=== PATIENT | female | born 1955 | race Caucasian/White ===

== ENCOUNTER 2017-05-18 16:10 | Emergency (ER) | payer BC ==
[2017-05-18 16:17] VITALS: BP 129/74
[2017-05-18] MEDS ORDERED: KETOROLAC 60 MG/2 ML VIAL IVP STA (16:47)
[2017-05-18] MEDS ORDERED: SODIUM CHLORIDE 0.9% 1,000 ML IV ONE (16:47)
[2017-05-18] MEDS ORDERED: ONDANSETRON 4 MG/2 ML VIAL IVP STA (16:47)
[2017-05-18] MEDS ORDERED: HYDROmorphone 1 MG/ML SYRINGE IVP STA (16:47)
[2017-05-18 17:09] LABS: BASOPHILS % (AUTO) 0.7 %; EOSINOPHILS % (AUTO) 0.1 %; HCT - HEMATOCRIT 46.5 % (37.0-47.0); HGB - HEMOGLOBIN 15.8 g/dL (12.0-16.0); LYMPHOCYTES # (AUTO) 0.6 10^3/uL (1.5-3.5); LYMPHOCYTES % (AUTO) 8.8 %; MEAN CORPUSCULAR HEMOGLOBIN 29.4 pg (27.0-31.0); MEAN CORPUSCULAR HGB CONC 33.9 g/dL (32.0-36.0); MEAN CORPUSCULAR VOLUME 86.7 fL (81.0-99.0); MEAN PLATELET VOLUME 7.5 fL (7.9-10.8); MONOCYTES # (AUTO) 0.5 10^3/uL (0.0-1.0); MONOCYTES % (AUTO) 6.9 %; NEUTROPHILS # (AUTO) 5.6 10^3/uL (1.5-6.6); NEUTROPHILS % (AUTO) 83.5 %; RED BLOOD COUNT 5.36 10^6/uL (4.20-5.40); RED CELL DISTRIBUTION WIDTH 14.1 % (12.0-15.0); UNCORRECTED WHITE BLOOD COUNT 6.7 x10^3/uL; WHITE BLOOD COUNT 6.7 x10^3/uL (4.8-10.8)
[2017-05-18] MEDS ORDERED: SODIUM CHLORIDE FLUSH 0.9% 10 ML SYRINGE IVP ONE (17:31)
[2017-05-18 17:33] LABS: ALBUMIN/GLOBULIN RATIO 1.2 (1.0-2.2); BILIRUBIN,TOTAL 0.7 mg/dL (0.2-1.0); CALCIUM 8.9 mg/dL (8.5-10.3); CREATININE 0.7 mg/dL (0.4-1.0); POTASSIUM 3.7 mmol/L (3.5-5.0); TOTAL PROTEIN 7.6 g/dL (6.7-8.2); URIC ACID 4.2 mg/dL (2.6-7.2)
[2017-05-18 17:33] LABS: BILIRUBIN,URINE NEGATIVE (NEGATIVE)
[2017-05-18] MEDS ORDERED: HYDROmorphone 1 MG/ML SYRINGE ONE (17:42)
[2017-05-18] MEDS ORDERED: KETOROLAC 30 MG/ML VIAL ONE (17:44)
[2017-05-18] MEDS ORDERED: ONDANSETRON 4 MG/2 ML VIAL ONE (17:44)
[2017-05-18 17:45] LABS: UA w/ MICROSCOPIC CHARGE YES
[2017-05-18 17:47] LABS: UR CULTURE IF IND NOT INDICATED; WBC,URINE 0-3 /HPF (0-5)
[2017-05-18] MEDS ORDERED: predniSONE 20 MG TABLET PO STA (18:37)
--- NOTE | 2017-05-18 18:40 | XRAY Preliminary Report ---
Exam: XR Foot 3 View LT IMPRESSION: 1. Moderately advanced spurring and hypertrophy of the first metatarsophalangeal joint. No acute frac ture. [facility] SITE ID: [id number]
--- NOTE | 2017-05-18 18:42 | XRAY Report ---
EXAM: LEFT FOOT RADIOGRAPHY EXAM DATE: 05/18/2017 06:22 PM. CLINICAL HISTORY: Left midfoot pain no injury. COMPARISON: None. TECHNIQUE: 3 views. FINDINGS: Bones: There is moderate hypertrophy of the distal first metatarsal. Negative for an acute fracture. No lytic or destructive bone lesion. Joints: There is joint space narrowing of the first metatarsal-phalangeal joint. No dislocation. Soft Tissues: There is a spur on the calcaneus at Achilles insertion. IMPRESSION: 1. Moderately advanced spurring and hypertrophy of the first metatarsophalangeal joint. No acute frac ture. [facility] Referring Provider Line: [phone] SITE ID: [id number]
[2017-05-18] MEDS ORDERED: predniSONE 20 MG TABLET ONE (18:45)
--- NOTE | 2017-05-18 18:52 | ED Physician Documentation ---
History of Present Illness - Stated complaint Stated Complaint: BODY ACHES - Chief complaint Chief Complaint: General - Additonal information Additional information: Patient is a pleasant healthy 62-year-old female who presents with a complaint of generalized body aches and myalgias since . The pain started in her left foot and progressed and now involves her entire body. She feels achy and occasionally mildly feverish with chills. She does not have any ear nose and throat symptoms. There is no chest pain or cough. There is no abdominal pain nausea, vomiting, constipation or diarrhea. She has never had this type of thing happen before. She denies any injury to her foot either. There is no history of gout. Review of systems: For pertinent positive and negatives in the review of systems please see the history of present illness, otherwise all other systems have been reviewed and are negative. Dragon disclaimer: Parts of this medical record were created using voice recognition technology. Because of the inherent limitations of this system, occasional same sounding word substitutions do occur and persist despite proofreading. Please read the document for context. Review of Systems Constitutional: reports: Chills, Myalgias, Fatigue Eyes: denies: Loss of vision Ears: denies: Loss of hearing Nose: denies: Rhinorrhea / runny nose, Foreign Body Throat: denies: Sore throat PD PAST MEDICAL HISTORY - Past Medical History Past Medical History: No - Past Surgical History Past Surgical History: Yes General: Cholecystectomy - Present Medications Home Medications: Ambulatory Orders Medication Instructions Recorded Confirmed Naproxen Sodium [Aleve] 1 tab PO DAILY 05/18/17 05/18/17 Prednisone 40 mg PO DAILY #8 tablet 05/18/17 Tramadol HCl 50 mg PO Q8HR PRN #14 tablet 05/18/17 - Allergies Allergies/Adverse Reactions: Allergies Allergy/AdvReac Type Severity Reaction Status Date / Time No Known Drug Allergies Allergy Verified 05/15/14 11:43 - Social History Does the pt smoke?: Yes Smoking Status: Current some day smoker Does the pt drink ETOH?: No Does the pt have substance abuse?: No PD ED PE NORMAL - Vitals Vital signs reviewed: Yes - General General: Alert and oriented X 3, No acute distress - HEENT HEENT: Atraumatic, EOMI, Ears normal, Pharynx benign, Dentition benign - Neck Neck: Supple, no meningeal sign - Cardiac Cardiac: RRR, No murmur, No gallop - Respiratory Respiratory: No respiratory distress, Clear bilaterally - Abdomen Abdomen: Normal bowel sounds, Non tender - Female Female : Deferred - Derm Derm: Normal color, Warm and dry - Extremities Extremities: No deformity, No tenderness to palpate - Neuro Neuro: Alert and oriented X 3, trapper bird 2-12 intact, No motor deficit, No sensory deficit Results - Vitals Vitals: Vital Signs - 24 hr 05/18/17 16:14 Temperature 37.5 C Heart Rate 96 Respiratory 22 Rate Blood Pressure 129/74 O2 Saturation 94 Oxygen O2 Source Room air - Labs Labs: Laboratory Tests 05/18/17 05/18/17 05/18/17 17:04 17:04 17:04 WBC 6.7 RBC 5.36 Hgb 15.8 Hct 46.5 MCV 86.7 MCH 29.4 MCHC 33.9 RDW 14.1 Plt Count 194 MPV 7.5 L Neut # 5.6 Lymph # 0.6 L [place] # 0.5 Eos # 0.0 Baso # 0.0 Absolute Nucleated RBC 0.00 Nucleated RBCs 0.0 ESR 3 Sodium 134 L Potassium 3.7 Chloride 98 L Carbon Dioxide 27 Anion Gap 9.0 BUN 12 Creatinine 0.7 Estimated GFR (MDRD) 85 L Glucose 115 H Uric Acid 4.2 Calcium 8.9 Total Bilirubin 0.7 AST 39 ALT 43 Alkaline Phosphatase 98 C-Reactive Protein 8.8 H Total Protein 7.6 Albumin 4.1 Globulin 3.5 Albumin/Globulin Ratio 1.2 Lipase 18 L Urine Color Urine Clarity Urine pH Ur Specific [place] Urine Protein Urine Glucose (UA) Urine Ketones Urine Occult Blood Urine Nitrite Urine Bilirubin Urine Urobilinogen Ur Leukocyte Esterase Urine RBC Urine WBC Ur Squamous Epith Cells Urine Bacteria Ur Microscopic Review Urine Culture Comments 05/18/17 17:27 WBC RBC Hgb Hct MCV MCH MCHC RDW Plt Count MPV Neut # Lymph # [place] # Eos # Baso # Absolute Nucleated RBC Nucleated RBCs ESR Sodium Potassium Chloride Carbon Dioxide Anion Gap BUN Creatinine Estimated GFR (MDRD) Glucose Uric Acid Calcium Total Bilirubin AST ALT Alkaline Phosphatase C-Reactive Protein Total Protein Albumin Globulin Albumin/Globulin Ratio Lipase Urine Color YELLOW Urine Clarity CLEAR Urine pH 6.0 Ur Specific [place] <=1.005 Urine Protein NEGATIVE Urine Glucose (UA) NEGATIVE Urine Ketones NEGATIVE Urine Occult Blood MODERATE H Urine Nitrite NEGATIVE Urine Bilirubin NEGATIVE Urine Urobilinogen 0.2 (NORMAL) Ur Leukocyte Esterase NEGATIVE Urine RBC 0-5 Urine WBC 0-3 Ur Squamous Epith Cells FEW Squamous Urine Bacteria Rare Ur Microscopic Review INDICATED Urine Culture Comments NOT INDICATED PD MEDICAL DECISION MAKING - ED course Complexity details: reviewed old records, reviewed results, re-evaluated patient , d/w patient, d/w family ED course: Pleasant 62-year-old woman with myalgias for 3 days without any signs or symptoms of infection. The pain started in the left foot which clinically looks normal. Radiographs and uric acid were obtained and are normal. I do not think this represents gout. She felt warm to touch and looks a little flushed. We did an infectious disease workup including chest x-ray labs and urinalysis. All these tests are normal. She has no other ear nose and throat symptoms that would make me more concerned for influenza or RSV. Given her myalgias and body aches without identifiable cause him a little concerned about possibility of polymyalgia rheumatica. This was discussed with the patient is a possible etiology. Her CRP is elevated however the ESR is normal. The treatment at this point is mainly supportive I have written for small amount of tramadol for muscle aches and will place her on a short course of oral prednisone. If she gets significant rapid benefit with prednisone and this could be additional data suggesting a inflammatory condition such as PMR. Although more likely than not this is probably just a nontypeable virus. Disposition: To home Clinical impression: 1. Generalized myalgias 2. Possible polymyalgia rheumatica first flare Departure - Departure Disposition: 01 Home, Self Care Clinical Impression: Generalized muscle ache Condition: Good Instructions: ED Muscle Aching Follow-Up: Flavio Babin MD [Provider Admit Priv/Credential] - Prescriptions: Tramadol HCl 50 mg PO Q8HR PRN #14 tablet PRN Reason: Pain Prednisone 40 mg PO DAILY #8 tablet Comments: All of your tests and x-rays are normal here today. Your CRP is mildly elevated however your ESR is normal. More likely than not to have a virus however you could have a more rare rheumatologic condition called polymyalgia rheumatica. Try a short course of oral prednisone to see if this helps you. If the prednisone gives him a lot of benefit very quickly he could be additional information suggesting you have this disorder. I suggest you seek follow-up with her local physician to go over your test results. Please return if worse in any way
--- NOTE | 2017-05-18 19:12 | XRAY Preliminary Report ---
Exam: XR Chest 2 View PA/LAT IMPRESSION: No acute pulmonary consolidation. [facility] SITE ID: [id number]
--- NOTE | 2017-05-18 19:15 | XRAY Report ---
EXAM: CHEST RADIOGRAPHY EXAM DATE: 05/18/2017 06:38 PM. CLINICAL HISTORY: Fever, no source. COMPARISON: None. TECHNIQUE: 2 views. FINDINGS: Lungs/Pleura: No focal opacities evident. No pleural effusion. No pneumothorax. Normal volumes. Mediastinum: Normal heart size. Atherosclerosis. Other: Status post left breast surgery. IMPRESSION: No acute pulmonary consolidation. [facility] Referring Provider Line: [phone] SITE ID: [id number]
== END 2017-05-18 19:03 | disposition home or self-care (01) ==
LOC: ED 16:10
DX: M79.1 Myalgia (principal); F17.200 Nicotine dependence, unspecified, uncomplicated
CPT/HCPCS: 36415; 71020; 73630; 80053; 81001; 83690; 84550; 85025; 85651; 86140; 96374; 96375; 99283; 99284; J1170; J7512; 81003; 87086

== ENCOUNTER 2017-05-21 09:10 | Outpatient (CLI) | payer BC | END 2017-05-21 09:11 | disposition critical access hospital (66) | LOC: EMS 09:10 | PROVIDERS: ATTEND Surgery | DX: M54.9 Dorsalgia, unspecified (principal) | CPT/HCPCS: A0425; A0427 ==

== ENCOUNTER 2017-05-21 09:30 | Inpatient (IN) | payer BC ==
--- NOTE | 2017-05-21 09:46 | ED Physician Documentation ---
PD HPI BACK PAIN - Stated complaint Stated Complaint: BACK PX - Chief complaint Chief Complaint: Back Pain - History obtained from History obtained from: Patient, EMS - History of Present Illness Timing - onset: Today Timing - duration: Hours (several) Location: Mid, Lower (thoracolumbar area midline and to both sides muscles. No rash nor sores.) Associated symptoms: Other (general malaise and muscle aches for 2 days). No: Fever, Weakness, Numbness, Incontinent of urine Worsened by: Movement, Twisting. No: Palpation Contributing factors: No: Lifting, Twisting, Trauma Similar symptoms before: Has not had sx before Recently seen: Emergency Dept (2 days ago for general malaise and arthralgias. Had CXR, foot xray and labs without specific diagnosis. Did not have back pain at the time. Onset thoracolumbar pain today, worse with movement and feeling of muscle spasms.) Review of Systems Constitutional: reports: Myalgias, Fatigue. denies: Fever, Chills Nose: denies: Rhinorrhea / runny nose, Congestion Throat: denies: Sore throat Cardiac: denies: Chest pain / pressure, Palpitations Respiratory: denies: Cough GI: denies: Abdominal Pain, Abdominal Swelling, Nausea, Vomiting, Diarrhea : denies: Dysuria, Hematuria Skin: denies: Rash, Lesions Neurologic: reports: Generalized weakness. denies: Focal weakness, Numbness, Near syncope, Headache PD PAST MEDICAL HISTORY - Past Medical History Cardiovascular: None Respiratory: None Neuro: None Endocrine/Autoimmune: None - Past Surgical History Past Surgical History: Yes General: Cholecystectomy - Present Medications Home Medications: Ambulatory Orders Medication Instructions Recorded Confirmed Naproxen Sodium [Aleve] 220 mg PO DAILY PRN 05/18/17 05/21/17 Prednisone 40 mg PO DAILY #8 tablet 05/18/17 05/21/17 Tramadol HCl 50 mg PO Q8HR PRN #14 tablet 05/18/17 05/21/17 Baclofen 10 mg PO TID PRN #20 tablet 05/23/17 HYDROcod/ACETAM 5/325 [[place] 5/325] 1 each PO Q4H PRN #25 tablet 05/23/17 - Allergies Allergies/Adverse Reactions: Allergies Allergy/AdvReac Type Severity Reaction Status Date / Time No Known Drug Allergies Allergy Verified 05/15/14 11:43 - Social History Does the pt smoke?: Yes Smoking Status: Current some day smoker Does the pt drink ETOH?: No Does the pt have substance abuse?: No - Family History Family history: denies: Aortic aneursym, Aortic dissection PD ED PE NORMAL - Vitals Vital signs reviewed: Yes - General General: Alert and oriented X 3, Well developed/nourished, Other (appears in pain with slight movement of lower back. ) - HEENT HEENT: Pharynx benign - Neck Neck: Supple, no meningeal sign, No adenopathy - Cardiac Cardiac: RRR, No murmur - Respiratory Respiratory: Clear bilaterally - Abdomen Abdomen: Normal bowel sounds, Soft, Non tender, Non distended, No organomegaly - Female Female : Deferred - Rectal Rectal: Deferred - Back Back: No CVA TTP, Other (tender in muscles at thoracolumbar area. No rash nor sores. No vertebral tenderness per se. ) - Derm Derm: Normal color, Warm and dry - Extremities Extremities: No deformity, No tenderness to palpate, No edema, No calf tenderness / cord - Neuro Neuro: No motor deficit, No sensory deficit, Other (2+DTRs at knees. ) Results - Vitals Vitals: Oxygen O2 Source Room air - Labs Labs: Laboratory Tests 05/21/17 05/21/17 05/21/17 09:58 09:58 09:58 WBC 10.4 RBC 5.08 Hgb 14.7 Hct 43.7 MCV 86.1 MCH 29.0 MCHC 33.7 RDW 14.3 Plt Count 156 MPV 8.6 Neut # 7.2 H Lymph # 1.8 [place] # 1.3 H Eos # 0.0 Baso # 0.1 Absolute Nucleated RBC 0.01 Nucleated RBCs 0.1 ESR 10 Sodium Potassium Chloride Carbon Dioxide Anion Gap BUN Creatinine Estimated GFR (MDRD) Glucose Glycated Hemoglobin Estim Average Glucose Calcium Magnesium Total Bilirubin AST ALT Alkaline Phosphatase Total Creatine Kinase C-Reactive Protein 17.0 H Total Protein Albumin Globulin Albumin/Globulin Ratio Urine Color Urine Clarity Urine pH Ur Specific [place] Urine Protein Urine Glucose (UA) Urine Ketones Urine Occult Blood Urine Nitrite Urine Bilirubin Urine Urobilinogen Ur Leukocyte Esterase Urine RBC Urine WBC Ur Squamous Epith Cells Urine Bacteria Urine Mucus Ur Microscopic Review Urine Culture Comments Influenza A (Rapid) Influenza B (Rapid) Influenza Types A,B Ag 05/21/17 05/21/17 05/22/17 11:10 17:52 05:37 WBC 15.3 H RBC 4.99 Hgb 14.5 Hct 43.4 MCV 87.0 MCH 29.1 MCHC 33.5 RDW 14.4 Plt Count 187 MPV 8.7 Neut # 13.4 H Lymph # 0.9 L [place] # 1.0 Eos # 0.0 Baso # 0.0 Absolute Nucleated RBC 0.00 Nucleated RBCs 0.0 ESR Sodium Potassium Chloride Carbon Dioxide Anion Gap BUN Creatinine Estimated GFR (MDRD) Glucose Glycated Hemoglobin Estim Average Glucose Calcium Magnesium Total Bilirubin AST ALT Alkaline Phosphatase Total Creatine Kinase C-Reactive Protein Total Protein Albumin Globulin Albumin/Globulin Ratio Urine Color YELLOW Urine Clarity CLEAR Urine pH 6.0 Ur Specific [place] 1.015 Urine Protein NEGATIVE Urine Glucose (UA) NEGATIVE Urine Ketones NEGATIVE Urine Occult Blood MODERATE H Urine Nitrite NEGATIVE Urine Bilirubin NEGATIVE Urine Urobilinogen 0.2 (NORMAL) Ur Leukocyte Esterase NEGATIVE Urine RBC 6-10 H Urine WBC 0-3 Ur Squamous Epith Cells RARE Squamous Urine Bacteria Rare Urine Mucus Few [place] Ur Microscopic Review INDICATED Urine Culture Comments NOT INDICATED Influenza A (Rapid) Negative Influenza B (Rapid) Negative Influenza Types A,B Ag - 05/22/17 05/22/17 05/22/17 05:37 05:37 09:59 WBC RBC Hgb Hct MCV MCH MCHC RDW Plt Count MPV Neut # Lymph # [place] # Eos # Baso # Absolute Nucleated RBC Nucleated RBCs ESR Sodium 138 Potassium 3.7 Chloride 102 Carbon Dioxide 25 Anion Gap 11.0 BUN 26 H Creatinine 0.7 Estimated GFR (MDRD) 85 L Glucose 118 H Glycated Hemoglobin 6.0 Estim Average Glucose 126 H Calcium 8.7 Magnesium 2.1 Total Bilirubin 0.6 AST 23 ALT 53 Alkaline Phosphatase 125 H Total Creatine Kinase 11 L C-Reactive Protein Total Protein 6.9 Albumin 3.3 Globulin 3.6 Albumin/Globulin Ratio 0.9 L Urine Color Urine Clarity Urine pH Ur Specific [place] Urine Protein Urine Glucose (UA) Urine Ketones Urine Occult Blood Urine Nitrite Urine Bilirubin Urine Urobilinogen Ur Leukocyte Esterase Urine RBC Urine WBC Ur Squamous Epith Cells Urine Bacteria Urine Mucus Ur Microscopic Review Urine Culture Comments Influenza A (Rapid) Influenza B (Rapid) Influenza Types A,B Ag - Rads (name of study) KUB CT Radiology: Prelim report reviewed, Final report received (some disc bulge L4-5; colon wall thickening at rectal area. No acute process per se. ) PD MEDICAL DECISION MAKING - ED course Complexity details: reviewed results, re-evaluated patient (still hurting with simple ROM, even getting out of bed to bathroom, unable to do so. Seems concerning and consider other cause not yet seen (consider MRI).), considered differential (Patient needs repeated, several doses of pain meds and other meds to get comfortable at rest. Still significant pain and spasms with movement. CT is okay. blood tests show only mild elevation CRP. No neurologic deficits in legs. I don't know cause of her pain except myofascial pain. No obvious stones, aneurysms, vascular; no markers to suggest discitis/abscess. However cannot control pain adequately. Talked with Hospitalist for continued treatment and consider other testing as they deem appropriate. ), d/w patient Departure - Departure Disposition: ED Place in Observation Clinical Impression: Thoracolumbar back pain, Intractable low back pain Condition: Stable Record reviewed to determine appropriate education?: Yes Discharge Date/Time: 05/21/17 17:44
[2017-05-21] MEDS ORDERED: diazePAM INJ 5 MG/ML SYRINGE IVP STA (09:48)
[2017-05-21] MEDS ORDERED: KETOROLAC 60 MG/2 ML VIAL IVP STA (09:48)
[2017-05-21] MEDS ORDERED: HYDROmorphone 1 MG/ML SYRINGE IVP STA ×4 (09:48→16:00)
[2017-05-21] MEDS ORDERED: HYDROmorphone 1 MG/ML SYRINGE ONE ×4 (10:02→16:28)
[2017-05-21] MEDS ORDERED: KETOROLAC 30 MG/ML VIAL ONE (10:03)
[2017-05-21] MEDS ORDERED: diazePAM INJ 5 MG/ML SYRINGE ONE (10:03)
[2017-05-21 10:07] LABS: BASOPHILS # (AUTO) 0.1 10^3/uL (0.0-0.1); BASOPHILS % (AUTO) 0.8 %; EOSINOPHILS % (AUTO) 0.4 %; HCT - HEMATOCRIT 43.7 % (37.0-47.0); HGB - HEMOGLOBIN 14.7 g/dL (12.0-16.0); LYMPHOCYTES # (AUTO) 1.8 10^3/uL (1.5-3.5); LYMPHOCYTES % (AUTO) 17.6 %; MEAN CORPUSCULAR HGB CONC 33.7 g/dL (32.0-36.0); MEAN CORPUSCULAR VOLUME 86.1 fL (81.0-99.0); MEAN PLATELET VOLUME 8.6 fL (7.9-10.8); MONOCYTES # (AUTO) 1.3 10^3/uL (0.0-1.0); MONOCYTES % (AUTO) 12.1 %; NEUTROPHILS # (AUTO) 7.2 10^3/uL (1.5-6.6); NEUTROPHILS % (AUTO) 69.1 %; NUCLEATED RED BLOOD CELLS AUTO 0.1 /100WBC; RED BLOOD COUNT 5.08 10^6/uL (4.20-5.40); RED CELL DISTRIBUTION WIDTH 14.3 % (12.0-15.0); UNCORRECTED WHITE BLOOD COUNT 10.4 x10^3/uL; WHITE BLOOD COUNT 10.4 x10^3/uL (4.8-10.8)
[2017-05-21 11:25] LABS: BILIRUBIN,URINE NEGATIVE (NEGATIVE)
[2017-05-21 11:31] LABS: UA w/ MICROSCOPIC CHARGE YES; UR CULTURE IF IND NOT INDICATED; WBC,URINE 0-3 /HPF (0-5)
[2017-05-21] MEDS ORDERED: DEXAMETHASONE 10 MG/ML VIAL IVP STA (11:47)
[2017-05-21] MEDS ORDERED: DEXAMETHASONE 10 MG/ML VIAL ONE (11:57)
[2017-05-21] MEDS ORDERED: SODIUM CHLORIDE FLUSH 0.9% 10 ML SYRINGE IVP ONE (11:58)
[2017-05-21] MEDS ORDERED: ACETAMINOPHEN 500 MG TABLET PO STA (12:21)
[2017-05-21] MEDS ORDERED: ACETAMINOPHEN 500 MG TABLET PO ONE (12:43)
--- NOTE | 2017-05-21 15:36 | CT Report ---
EXAM: CT ABDOMEN AND PELVIS EXAM DATE: 05/21/2017 03:16 PM. CLINICAL HISTORY: Back pain COMPARISONS: None. TECHNIQUE: Routine axial helical CT imaging was performed through the abdomen and pelvis without IV c ontrast. Reconstructions: Coronal and sagittal. In accordance with CT protocol optimization, one or more of the following dose reduction techniques w ere utilized for this exam: automated exposure control, adjustment of mA and/or KV based on patient s ize, or use of iterative reconstructive technique. FINDINGS: Lung Bases: Unremarkable. Abdominal Organs: The liver, spleen, pancreas, and adrenal glands demonstrate no significant abnormal ities. There is a 0.2 cm nonobstructing stone within the inferior right kidney. No evidence of distal obstructing stone or hydronephrosis. Left kidney demonstrates no stones or hydronephrosis. There is an exophytic cyst emanating from the inferior left kidney. Gallbladder/bile ducts: The gallbladder is not seen. No significant bile duct dilatation. Peritoneal Cavity: Questionable wall thickening versus dense stool within the left rectum (image 84 s eries 3). There is distal colon diverticulosis without evidence of diverticulitis. There is colonic d iverticulosis without evidence of diverticulitis. Pelvic Organs: No bladder stones or wall thickening. Noncontrast images of the visualized pelvic orga ns are unremarkable. Vasculature: Unremarkable. Other: No acute bony abnormalities are seen. There is mild to moderate spinal stenosis and neural for amen narrowing secondary to disk bulge and ligamentum flavum hypertrophy at the L4-L5 level. IMPRESSION: 1. Small nonobstructing stone within the inferior right kidney. No evidence of distal obstructing sto ne or hydronephrosis. 2. There is distal colon diverticulosis without evidence of diverticulitis. 3. Questionable wall thickening versus dense stool within the left aspect of the rectum (image 84 ser ies 3). Correlation with examination recommended as indicated. 4. There is mild to moderate spinal stenosis and neural foraminal narrowing secondary to disk bulge a nd ligamentum flavum hypertrophy at the L4-L5 level. No acute bony abnormalities are seen. Referring Provider Line: [phone] SITE ID: [id number]
[2017-05-21] MEDS ORDERED: PROMETHAZINE 25 MG/1 ML VIAL IM PRN (16:52)
[2017-05-21] MEDS ORDERED: ZOLPIDEM 5 MG TABLET PO PRN (16:52)
--- NOTE | 2017-05-21 17:11 | HISTORY & PHYSICAL EXAMINATION ---
Chief Complaint - Chief Complaint Chief Complaint: thoracolumbar back pain History of Present Illness - Admitted From Admitted From:: emergence department - History Obtained From History obtained from: patient and her - History of Present Illness HPI Comment/Other: This is a 62-year-old Cauc[place] female without significant medical history, who present emergence department for evaluation of thoracolumbar pain. Patient report she has been on this emergence department for general malaise and arthralgias 2 days ago. Her CXR, foot Xray and lab test was without specific diagnosis. She was prescribed Prednisone, Tramadol, and Naproxen 2 days ago. She report she compliant these medications. She report she still had arthralgias , generalized malaise, weakness, and arthralgias. She also report she developed throracolumbar back pain, and pain worsen with the movement. She report she feels her muscle spasms as well. Patient report in last Friday she had nausea and vomiting once but no diarrhea. Patient denies bladder control and bowel movement problem. Patient report she has normal sensation and movement in four extremities. There is no focal neurological deficits. Patient denies chest pain , shortness of breathing, headache, dysuria or vision issue. CXR and Xray of foot done two days were unremarkable. CT of abdomen reveals some significant findings including at L4-L5 level, mild to moderate spinal stenosis and neural foraminal narrowing secondary to disk bulge and ligamentum flavum hypertrophy, no acute bony abnormalities. Lab test reveals significantly moderate blood at UA, high CRP 17, normal ESR, negative for Influanza A/B. Vital are unremarkable. Review of Systems - Constitutional Constitutional: reports: Fatigue, Malaise, Weakness. denies: Fever, Chills, Poor appetite, Diaphoresis, Night sweats, Weight gain, Weight loss - Eyes Eyes: denies: Pain, Irritation, Amaurosis, Blurred vision, Spots in vision, Field loss, Vision loss - Ears, Nose & Throat Ears, Nose & Throat: denies: Ear pain, Hearing loss, Hearing aids, Tinnitus, Vertigo, Nasal discharge, Nosebleeds, Postnasal drainage, Sore throat, Mouth lesions, Bleeding gums - Cardiovascular Cariovascular: denies: Irregular heart rate, Palpitations, Chest pain, Edema, Lightheadedness, Syncope, Exertional dyspnea, Decr. exercise tolerance - Respiratory Respiratory: denies: Cough, Sputum production, Wheezing, Snoring, Orthopnea, SOB at rest, SOB with exertion - Gastrointestinal Gastrointestinal: reports: Abdominal pain, Nausea, Vomiting. denies: Abdominal distention, Constipation, Diarrhea, Change in bowel habits, Rectal bleeding, Black stools, Bloody stools, Jamie blood emesis, Coffee grounds emesis - Genitourinary Genitourinary: denies: Dysuria, Frequency, Urgency, Hematuria, Incontinence, Flank pain - Musculoskeletal Musculoskeletal: reports: Muscle pain, Back pain, Muscle aches, Joint pain. denies: Stiffness, Limited range of motion, Muscle weakness, Gout - Integumentary Integumentary: reports: Rash. denies: Pruritis, Lesions, Dryness, Lumps, Acne, Pigment changes, Nail changes - Neurological Neurological: denies: General weakness, Focal weakness, Headache, Dizziness, Numbness, Memory problems, Abnormal gait, Seizures, Incoordination, Slurred speech - Psychiatric Psychiatric: denies: Depression, Anxiety, Suicidal, Delusions, Hallucinations, Homicidal - Endocrine Endocrine: denies: Polyuria, Polydypsia, Polyphagia, Intolerance to cold - Hematologic/Lymphatic Hematologic/Lymphatic: denies: Anemia, Bruising, Petechiae, Blood clots, Lymphadenopathy, Bleeding tendencies, Recurrent infections History - Past Medical History Cardiovascular: reports: None Respiratory: reports: None Neuro: reports: None Endocrine/Autoimmune: reports: None GI: reports: None 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 Pt denies alcohol and drug abuse. - Substance History Use: Uses substance without health or social issues: Tobacco Abuse: Recurrent use of substance despite neg consequences: NONE Dependence: Experiences withdrawal or developed tolerances: NONE - POLST Patient has POLST: No POLST Status: Full Code Meds/Allgy - Home Medications Home Medications: Ambulatory Orders Medication Instructions Recorded Confirmed Naproxen Sodium [Aleve] 220 mg PO DAILY PRN 05/18/17 05/21/17 Prednisone 40 mg PO DAILY #8 tablet 05/18/17 05/21/17 Tramadol HCl 50 mg PO Q8HR PRN #14 tablet 05/18/17 05/21/17 - Allergies Allergies/Adverse Reactions: Allergies Allergy/AdvReac Type Severity Reaction Status Date / Time No Known Drug Allergies Allergy Verified 05/15/14 11:43 Exam - Vital Signs Reviewed Vital Signs: Yes Vital Signs: Vital Signs x48h Temp Pulse Resp BP Pulse Ox 05/21/17 13:52 73 16 118/67 95 05/21/17 13:33 74 18 123/77 95 05/21/17 11:40 76 16 114/70 91 L 05/21/17 10:16 72 16 94 05/21/17 10:15 89 L 05/21/17 10:12 77 15 116/65 91 L 05/21/17 09:33 36.5 C 79 20 130/82 H 94 - Physical Exam General Appearance: positive: No acute distress, Alert, Mild distress. negative : Lethargic Eyes Bilateral: positive: Normal inspection, PERRL. negative: No lid inflammation, Conjunctivae nml ENT: positive: ENT inspection nml, Pharynx nml, No signs of dehydration, Other ( molar erythema at her face). negative: Purulent nasal drainage, Pharyngeal erythema Neck: positive: Nml inspection, Thyroid nml, No JVD, Trachea midline. negative : Thyromegaly, Lymphadenopathy (R), Lymphadenopathy (L), Stiff neck, Swelling/ bruising, Tracheal deviation Respiratory: positive: Chest non-tender, No respiratory distress, Breath sounds nml. negative: Wheezes, Rales, Rhonchi Cardiovascular: positive: Regular rate & rhythm, No murmur, No gallop. negative : Tachycardia, Bradycardia, Systolic murmur, Diastolic murmur Peripheral Pulses: positive: 2+ Abdomen: positive: Non-tender, No organomegaly, Nml bowel sounds, No distention. negative: Tenderness, Guarding, Rebound Back: positive: Nml inspection. negative: CVA tenderness (R), CVA tenderness (L ) Skin: positive: Color nml, Warm, Dry, Skin rash Extremities: positive: Non-tender, Full ROM, Nml appearance. negative: Calf tenderness, Charles's sign/cords Neurologic/Psychiatric: positive: Oriented x3, Motor nml, Sensation nml, Mood/ affect nml. negative: Sensory loss, Facial droop, Slurred/abnml speech, Depressed mood/affect Conclusion/Plan - Problem List (1) Intractable low back pain Conclusion/Plan: CT of abdomen reveals L4/5 mild to moderate stenosis and disk bulge pain control symptom support (2) Generalized muscle ache Conclusion/Plan: Influanza A/B test, pain control, check CKP (3) Hematuria Conclusion/Plan: moderate blood at UA. pt's HGB is normal, deny any dysuria, UA negative for UTI closely monitor any further hematuria, follow up (4) Malar rash Conclusion/Plan: elevated CRP check ESR and LOS, will follow up (5) DVT prophylaxis Conclusion/Plan: SCD and with Lovenox for DVT prophylaxis - Lab Results Fish Bones: 05/22/17 05:37 05/22/17 05:37 Issues/Core Measures - Anticipated LOS Anticipated Stay Length: Less than 2 midnights (expect less than 2 night, symptom treatment support) - DVT/VTE - Prophylaxis VTE/DVT Device ordered at admit?: Yes
[2017-05-21] MEDS: SODIUM CHLORIDE 0.9% 1,000 ML IV SCH (18:24)
[2017-05-21] MEDS: ACETAMINOPHEN 325 MG TABLET PO PRN ×2 (18:25→23:58)
[2017-05-21] MEDS: SODIUM CHLORIDE FLUSH 0.9% 10 ML SYRINGE IVP PRN (18:25)
[2017-05-21] MEDS: KETOROLAC 15 MG/ML VIAL IVP PRN (18:25)
[2017-05-21] MEDS: ONDANSETRON 4 MG/2 ML VIAL IVP PRN (18:49)
[2017-05-21] MEDS: SODIUM CHLORIDE FLUSH 0.9% 10 ML SYRINGE IVP SCH (18:54)
[2017-05-21] MEDS: HYDROmorphone 1 MG/ML SYRINGE IVP PRN (20:29)
[2017-05-22] MEDS: KETOROLAC 15 MG/ML VIAL IVP PRN ×2 (00:33→22:03)
[2017-05-22] MEDS: SODIUM CHLORIDE FLUSH 0.9% 10 ML SYRINGE IVP PRN ×3 (00:33→12:02)
[2017-05-22] MEDS: SODIUM CHLORIDE 0.9% 1,000 ML IV SCH ×2 (04:35→14:15)
[2017-05-22] MEDS: ONDANSETRON 4 MG/2 ML VIAL IVP PRN ×2 (05:21→14:31)
[2017-05-22] MEDS: HYDROmorphone 1 MG/ML SYRINGE IVP PRN ×7 (05:21→22:00)
[2017-05-22] MEDS: SODIUM CHLORIDE FLUSH 0.9% 10 ML SYRINGE IVP SCH ×3 (05:21→19:04)
[2017-05-22 05:48] LABS: BASOPHILS % (AUTO) 0.2 %; HCT - HEMATOCRIT 43.4 % (37.0-47.0); HGB - HEMOGLOBIN 14.5 g/dL (12.0-16.0); LYMPHOCYTES # (AUTO) 0.9 10^3/uL (1.5-3.5); LYMPHOCYTES % (AUTO) 5.6 %; MEAN CORPUSCULAR HEMOGLOBIN 29.1 pg (27.0-31.0); MEAN CORPUSCULAR HGB CONC 33.5 g/dL (32.0-36.0); MEAN PLATELET VOLUME 8.7 fL (7.9-10.8); MONOCYTES % (AUTO) 6.6 %; NEUTROPHILS # (AUTO) 13.4 10^3/uL (1.5-6.6); NEUTROPHILS % (AUTO) 87.6 %; RED BLOOD COUNT 4.99 10^6/uL (4.20-5.40); RED CELL DISTRIBUTION WIDTH 14.4 % (12.0-15.0); UNCORRECTED WHITE BLOOD COUNT 15.3 x10^3/uL; WHITE BLOOD COUNT 15.3 x10^3/uL (4.8-10.8)
[2017-05-22 06:03] LABS: ALBUMIN/GLOBULIN RATIO 0.9 (1.0-2.2); BILIRUBIN,TOTAL 0.6 mg/dL (0.2-1.0); CALCIUM 8.7 mg/dL (8.5-10.3); CREATININE 0.7 mg/dL (0.4-1.0); MAGNESIUM 2.1 mg/dL (1.7-2.8); POTASSIUM 3.7 mmol/L (3.5-5.0); TOTAL PROTEIN 6.9 g/dL (6.7-8.2)
[2017-05-22] MEDS: POLYETHYLENE GLYCOL 3350 17 GM PACKET PO SCH (09:11)
[2017-05-22] MEDS: ENOXAPARIN 40 MG/0.4 ML SYRINGE SUBQ SCH (09:19)
[2017-05-22] MEDS: FAMOTIDINE 20 MG TABLET PO SCH (09:19)
[2017-05-22 09:26] LABS: HEMOGLOBIN A1C 0.66 g/dL
--- NOTE | 2017-05-22 13:43 | PROVIDER PROGRESS NOTE ---
Subjective - Prog Note Date Prog Note Date: 05/22/17 - Subjective Pt reports feeling: No change Subjective: pt state she still feel some muscle ache, complain to have waterily diarrhea. Denies fever, chill, chest pain, headache. Current Medications - Current Medications Current Medications: Active Medications Acetaminophen (Tylenol) 650 mg PO Q4HR PRN PRN Reason: Pain 1 to 4 Last Admin: 05/21/17 23:58 Dose: 650 mg Enoxaparin Sodium (Lovenox) 40 mg SUBQ DAILY [facility] Last Admin: 05/22/17 09:19 Dose: 40 mg Famotidine (Pepcid) 20 mg PO DAILY [facility] Last Admin: 05/22/17 09:19 Dose: 20 mg Hydromorphone HCl (Dilaudid Inj) 0.5 mg IVP Q2HR PRN PRN Reason: Pain 8 to 10 Last Admin: 05/22/17 12:03 Dose: 0.5 mg Sodium Chloride (Normal Saline 0.9%) 1,000 mls @ 100 mls/hr IV .Q10H [facility] Last Admin: 05/22/17 04:35 Dose: 100 mls/hr Ketorolac Tromethamine (Toradol Inj) 15 mg IVP Q6HR PRN PRN Reason: PAIN Stop: 05/26/17 17:00 Last Admin: 05/22/17 00:33 Dose: 15 mg Ondansetron HCl (Zofran Inj) 4 mg IVP Q6HR PRN PRN Reason: Nausea / Vomiting Last Admin: 05/22/17 05:21 Dose: 4 mg Polyethylene Glycol (Miralax) 17 gm PO DAILY [facility] Last Admin: 05/22/17 09:11 Dose: Not Given Promethazine HCl (Phenergan Inj) 25 mg IM Q6HR PRN PRN Reason: Nausea / Vomiting Sodium Chloride (Normal Saline Flush 0.9%) 10 ml IVP PRN PRN PRN Reason: NEEDED PER PROVIDER ORDERS Last Admin: 05/22/17 12:02 Dose: 20 ml Sodium Chloride (Normal Saline Flush 0.9%) 10 ml IVP Q8HR [facility] Last Admin: 05/22/17 05:21 Dose: 10 ml Zolpidem Tartrate (Ambien) 5 mg PO QPM PRN PRN Reason: Insomnia Naproxen Sodium [Aleve] 220 mg PO DAILY PRN 05/18/17 Objective - Vital Signs/Intake & Output Vital Signs: Vital Signs x48h Temp Pulse Resp BP Pulse Ox 05/22/17 13:33 36.9 C 86 18 134/64 H 95 Intake & Output: Intake & Output 05/19/17 05/20/17 05/21/17 05/22/17 23:59 23:59 23:59 23:59 Intake Total 240 Balance 240 - Objective General Appearance: positive: No acute distress, Mild distress. negative: Lethargic Eyes Bilateral: positive: Normal inspection, PERRL, No lid inflammation, Conjunctivae nml ENT: positive: ENT inspection nml, Pharynx nml, No signs of dehydration. negative: Purulent nasal drainage, Pharyngeal erythema Neck: positive: Nml inspection, Thyroid nml, Trachea midline. negative: Thyromegaly, Lymphadenopathy (R), Lymphadenopathy (L), Stiff neck, Swelling/ bruising, Tracheal deviation Respiratory: positive: Chest non-tender, No respiratory distress, Breath sounds nml. negative: Wheezes, Rales, Rhonchi Cardiovascular: positive: Regular rate & rhythm, No murmur, No gallop. negative : Irregularly irregular, Tachycardia, Bradycardia, Systolic murmur, Diastolic murmur Peripheral Pulses: 2+ Radial (R), 2+ Radial (L), 2+ Dorsalis pedis (R), 2+ Dorsalis pedis (L) Abdomen: positive: Non-tender, Nml bowel sounds, No distention. negative: Tenderness, Guarding, Rebound Back: positive: Nml inspection. negative: CVA tenderness (R), CVA tenderness (L ) Skin: positive: Color nml, Warm, Dry. negative: Cyanosis, Pallor, Skin rash Extremities: positive: Non-tender, Full ROM, Nml appearance. negative: Calf tenderness, Charles's sign/cords Neurologic/Psychiatric: positive: Oriented x3, Motor nml, Sensation nml, Mood/ affect nml. negative: Sensory loss, Facial droop, Slurred/abnml speech, Depressed mood/affect - Lab Results Fish Bones: 05/22/17 05:37 05/22/17 05:37 Assessment/Plan - Problem List (1) Intractable low back pain Impression: back pain is better per pt report, continue pain control (2) Generalized muscle ache Impression: pt state she still feel some muscle ache,spasm. check total CK, bed rest check LOS add baclofen (3) Hematuria Impression: will closely monitor (4) Malar rash Impression: CRP elevated, but ESR normal. check LOS. follow up (6) Diarrhea Impression: check C.Diff, follow up
[2017-05-22] MEDS: BACLOFEN 10 MG TABLET PO SCH ×2 (14:47→22:02)
[2017-05-22] MEDS ORDERED: PROCHLORPERAZINE 10 MG/2 ML VIAL IVP PRN (16:59)
[2017-05-23] MEDS: SODIUM CHLORIDE 0.9% 1,000 ML IV SCH ×2 (00:34→11:51)
[2017-05-23] MEDS: HYDROmorphone 1 MG/ML SYRINGE IVP PRN ×3 (00:43→06:19)
[2017-05-23] MEDS: KETOROLAC 15 MG/ML VIAL IVP PRN ×2 (04:02→09:12)
[2017-05-23] MEDS: ONDANSETRON 4 MG/2 ML VIAL IVP PRN (04:02)
[2017-05-23] MEDS: SODIUM CHLORIDE FLUSH 0.9% 10 ML SYRINGE IVP SCH ×3 (04:02→09:12)
[2017-05-23 05:29] LABS: BASOPHILS % (AUTO) 0.5 %; EOSINOPHILS % (AUTO) 0.5 %; HCT - HEMATOCRIT 39.2 % (37.0-47.0); HGB - HEMOGLOBIN 12.9 g/dL (12.0-16.0); LYMPHOCYTES % (AUTO) 19.8 %; MEAN CORPUSCULAR HEMOGLOBIN 28.7 pg (27.0-31.0); MEAN CORPUSCULAR HGB CONC 32.9 g/dL (32.0-36.0); MEAN CORPUSCULAR VOLUME 87.2 fL (81.0-99.0); MEAN PLATELET VOLUME 8.3 fL (7.9-10.8); NEUTROPHILS % (AUTO) 62.2 %; RED CELL DISTRIBUTION WIDTH 14.5 % (12.0-15.0); UNCORRECTED WHITE BLOOD COUNT 11.1 x10^3/uL; WHITE BLOOD COUNT 11.1 x10^3/uL (4.8-10.8)
[2017-05-23 05:42] LABS: ALBUMIN/GLOBULIN RATIO 0.8 (1.0-2.2); BILIRUBIN,TOTAL 0.7 mg/dL (0.2-1.0); CREATININE 0.6 mg/dL (0.4-1.0); POTASSIUM 3.5 mmol/L (3.5-5.0); TOTAL PROTEIN 5.7 g/dL (6.7-8.2)
[2017-05-23 06:17] LABS: BAND NEUTROPHILS % (MANUAL) 10 %; LYMPHOCYTES % (MANUAL) 7 %; NEUTROPHILS % (MANUAL) 77 %; NP AUTO DIFFERENTIAL? YES; NP MAN DIFFERENTIAL? NO; PLATELET ESTIMATE, MANUAL NORMAL (130-450,000) (NORMAL); PLATELET MORPHOLOGY NORMAL APPEARANCE (NORMAL); TOTAL CELLS COUNTED 100
[2017-05-23] MEDS: BACLOFEN 10 MG TABLET PO SCH (06:19)
[2017-05-23] MEDS ORDERED: HYDROcod/ACETAM 5/325 MG TABLET PO PRN (07:26)
--- NOTE | 2017-05-23 07:30 | Discharge Plan ---
Discharge Plan Disposition: 01 Home, Self Care Condition: Stable Prescriptions: Baclofen 10 mg PO TID PRN #20 tablet PRN Reason: Spasms HYDROcod/ACETAM 5/325 [[place] 5/325] 1 each PO Q4H PRN #25 tablet PRN Reason: Pain Diet: Regular Activity Restrictions: Activity as Tolerated Shower Restrictions: No Weight Bearing: Full Weight Additional Instructions or Follow Up instructions: May see PCP in one week. Follow-Up Care: [facility] - Medical No Smoking: If you smoke, Please STOP! Call for help. Follow-up with: Flavio Babin MD [Primary Care Provider] -
[2017-05-23] MEDS: FAMOTIDINE 20 MG TABLET PO SCH (09:12)
[2017-05-23] MEDS: ENOXAPARIN 40 MG/0.4 ML SYRINGE SUBQ SCH (09:12)
--- NOTE | 2017-05-23 09:56 | XRAY Report ---
FRONTAL BILATERAL SHOULDERS: 05/23/2017 CLINICAL INDICATION: Severe pain. FINDINGS: Frontal view of the bilateral shoulders demonstrates mild glenohumeral osteoarthritis bila terally. There is no evidence of fracture. Likely calcific tendinitis of the supraspinatus tendon i s noted on the left. IMPRESSION: MILD DEGENERATIVE CHANGES. NO EVIDENCE OF FRACTURE. JOB #: [id number] EXT JOB #:[id number]
[2017-05-23] MEDS: POLYETHYLENE GLYCOL 3350 17 GM PACKET PO SCH (10:49)
[2017-05-23 12:22] VITALS: BP 129/72
--- NOTE | 2017-05-23 18:46 | DISCHARGE SUMMARY ---
Discharge Summary Admit Date: 05/22/17 Discharge Date: 05/23/17 Discharging Provider: HURTADO Primary Care Provider: Flavio Sun Condition at Discharge: Stable Discharge Disposition: 01 Home, Self Care Discharge Facility Name: home - DIAGNOSES Admission Diagnoses: (1) Intractable low back pain (2) Generalized muscle ache (3) Hematuria (4) Malar rash (5) Diarrhea Discharge Diagnoses with Status of Each Condition: (1) Intractable low back pain pain is better controlled. explain the CT finding to pt, the chronic condition, there is no bladder or bowel control problem, no sensation or mobility issue. The pain control. (2) Generalized muscle ache pt state it is great controlled by baclofen, prescribed to pt (3) Hematuria pt state no more, resolved (4) Malar rash subsided (5) Diarrhea resolved, C.Dif test is negative - HPI History of Present Illness: This is a 62-year-old [place] female without significant medical history, who present emergence department for evaluation of thoracolumbar pain. Patient report she has been on this emergence department for general malaise and arthralgias 2 days ago. Her CXR, foot Xray and lab test was without specific diagnosis. She was prescribed Prednisone, Tramadol, and Naproxen 2 days ago. She report she compliant these medications. She report she still had arthralgias , generalized malaise, weakness, and arthralgias. She also report she developed throracolumbar back pain, and pain worsen with the movement. She report she feels her muscle spasms as well. Patient report in last Friday she had nausea and vomiting once but no diarrhea. Patient denies bladder control and bowel movement problem. Patient report she has normal sensation and movement in four extremities. There is no focal neurological deficits. Patient denies chest pain , shortness of breathing, headache, dysuria or vision issue. CXR and Xray of foot done two days were unremarkable. CT of abdomen reveals some significant findings including at L4-L5 level, mild to moderate spinal stenosis and neural foraminal narrowing secondary to disk bulge and ligamentum flavum hypertrophy, no acute bony abnormalities. Lab test reveals significantly moderate blood at UA, high CRP 17, normal ESR, negative for Influanza A/B. Vital are unremarkable. - HOSPITAL COURSE Hospital Course: Pt was admitted for chief complaint of intractable back pain. CT finding suggest age-related mild to moderate changing at L4-L5 spinal, Xray of bilateral shoulder reveal the similar degenerative changing. Pt complaint of diarrhea but then diarrhea stop spontaneously, C.Diff test is negative. Pt state Baclofen is very control to her muscle spasm and pain. Pt was explained for all these study. Pt state she understand. All pt and her family's questions are answered. - ALLERGIES Allergies/Adverse Reactions: Allergies Allergy/AdvReac Type Severity Reaction Status Date / Time No Known Drug Allergies Allergy Verified 05/15/14 11:43 - MEDICATIONS Home Medications: Ambulatory Orders Medication Instructions Recorded Confirmed Naproxen Sodium [Aleve] 220 mg PO DAILY PRN 05/18/17 05/21/17 Prednisone 40 mg PO DAILY #8 tablet 05/18/17 05/21/17 Tramadol HCl 50 mg PO Q8HR PRN #14 tablet 05/18/17 05/21/17 Baclofen 10 mg PO TID PRN #20 tablet 05/23/17 HYDROcod/ACETAM 5/325 [[place] 5/325] 1 each PO Q4H PRN #25 tablet 05/23/17 - PHYSICAL EXAM AT DISCHARGE General Appearance: positive: No acute distress, Alert. negative: Lethargic Eyes Bilateral: positive: Normal inspection, PERRL, EOMI, No lid inflammation, Conjunctivae nml ENT: positive: ENT inspection nml, Pharynx nml, No signs of dehydration. negative: Purulent nasal drainage, Pharyngeal erythema, Oral lesions Neck: positive: Nml inspection, Thyroid nml, Trachea midline. negative: Thyromegaly, Lymphadenopathy (R), Lymphadenopathy (L), Stiff neck, Swelling/ bruising, Tracheal deviation Respiratory: positive: Chest non-tender, No respiratory distress, Breath sounds nml. negative: Wheezes, Rales, Rhonchi Cardiovascular: positive: Regular rate & rhythm, No murmur, No gallop. negative : Tachycardia, Bradycardia, Systolic murmur, Diastolic murmur Peripheral Pulses: positive: 2+ Abdomen: positive: Non-tender, Nml bowel sounds, No distention. negative: Tenderness, Guarding, Rebound Back: positive: Nml inspection. negative: CVA tenderness (R), CVA tenderness (L ) Skin: positive: Color nml, Warm, Dry. negative: Cyanosis, Diaphoresis, Pallor, Decubitus Extremities: positive: Non-tender, Full ROM, Nml appearance. negative: Calf tenderness, Charles's sign/cords Neurologic/Psychiatric: positive: Oriented x3, Sensation nml, Mood/affect nml. negative: Sensory loss, Facial droop, Slurred/abnml speech, Depressed mood/ affect - LABS Result Diagrams: 05/23/17 04:55 05/23/17 04:55 - FOLLOW UP Follow Up: pt is advised to see PCP in one week. please send the discharge summary to PCP
[2017-05-24 14:01] LABS: ANA SCREEN NEGATIVE (NEGATIVE)
== END 2017-05-23 12:35 | disposition home or self-care (01) | DRG 552 ==
LOC: EDUNIT# → ED 09:30 → OBS 16:52 → OBSVTOIN 05-22 10:16 → MS2 05-22 10:32
PROVIDERS: ADMIT Nurse Practitioner Gerontology; ATTEND Nurse Practitioner Gerontology
DX: M48.06 Spinal stenosis, lumbar region (principal); M79.1 Myalgia; R31.9 Hematuria, unspecified; R21 Rash and other nonspecific skin eruption; R19.7 Diarrhea, unspecified; F17.210 Nicotine dependence, cigarettes, uncomplicated; M19.012 Primary osteoarthritis, left shoulder; M19.011 Primary osteoarthritis, right shoulder; M51.27 Other intervertebral disc displacement, lumbosacral region; Z79.899 Other long term (current) drug therapy
CPT/HCPCS: 36415; 74176; 80053; 81001; 81003; 82550; 83036; 83735; 85025; 85651; 86038; 86140; 87086; 87275; 87276; 87493; 96372; 96374; 96375; 96376; 99284

== ENCOUNTER 2017-05-29 10:09 | Outpatient (CLI) | payer BC | END 2017-05-29 10:10 | disposition critical access hospital (66) | LOC: EMS 10:09 | PROVIDERS: ATTEND Surgery | DX: R41.82 Altered mental status, unspecified (principal) | CPT/HCPCS: A0425; A0427 ==

== ENCOUNTER 2017-06-14 10:51 | Outpatient (CLI) | payer BC ==
[2017-06-14 11:32] LABS: INR 1.6 (0.8-1.2); PT - PROTHROMBIN TIME 17.8 secs (9.9-12.6)
== END 2017-06-14 10:52 | disposition home or self-care (01) ==
LOC: LAB 10:51
PROVIDERS: ATTEND Internal Medicine
DX: I26.99 Other pulmonary embolism without acute cor pulmonale (principal)
CPT/HCPCS: 36415; 85610

== ENCOUNTER 2017-06-15 11:21 | Outpatient (CLI) | payer BC ==
[2017-06-15 11:59] LABS: INR 1.8 (0.8-1.2); PT - PROTHROMBIN TIME 20.6 secs (9.9-12.6)
== END 2017-06-15 11:22 | disposition home or self-care (01) ==
LOC: LAB 11:21
PROVIDERS: ATTEND Internal Medicine
DX: I26.99 Other pulmonary embolism without acute cor pulmonale (principal)
CPT/HCPCS: 36415; 85610

== ENCOUNTER 2017-06-24 12:31 | Outpatient (CLI) | payer BC ==
[2017-06-24 19:17] LABS: BASOPHILS # (AUTO) 0.1 10^3/uL (0.0-0.1); BASOPHILS % (AUTO) 1.7 %; EOSINOPHILS # (AUTO) 0.4 10^3/uL (0.0-0.7); EOSINOPHILS % (AUTO) 4.4 %; HCT - HEMATOCRIT 37.9 % (37.0-47.0); HGB - HEMOGLOBIN 12.5 g/dL (12.0-16.0); LYMPHOCYTES # (AUTO) 2.4 10^3/uL (1.5-3.5); LYMPHOCYTES % (AUTO) 29.2 %; MEAN CORPUSCULAR HEMOGLOBIN 28.5 pg (27.0-31.0); MEAN CORPUSCULAR HGB CONC 32.9 g/dL (32.0-36.0); MEAN CORPUSCULAR VOLUME 86.6 fL (81.0-99.0); MONOCYTES # (AUTO) 0.8 10^3/uL (0.0-1.0); MONOCYTES % (AUTO) 9.4 %; NEUTROPHILS # (AUTO) 4.5 10^3/uL (1.5-6.6); NEUTROPHILS % (AUTO) 55.3 %; NUCLEATED RED BLOOD CELLS AUTO 0.1 /100WBC; RED BLOOD COUNT 4.38 10^6/uL (4.20-5.40); RED CELL DISTRIBUTION WIDTH 15.1 % (12.0-15.0); UNCORRECTED WHITE BLOOD COUNT 8.2 x10^3/uL; WHITE BLOOD COUNT 8.2 x10^3/uL (4.8-10.8)
[2017-06-24 19:26] LABS: ALBUMIN/GLOBULIN RATIO 0.7 (1.0-2.2); BILIRUBIN,TOTAL < 0.2 mg/dL (0.2-1.0); BUN - BLOOD UREA NITROGEN 15 mg/dL (6-20); CALCIUM 9.1 mg/dL (8.5-10.3); CARBON DIOXIDE - CO2 29 mmol/L (21-32); CHLORIDE 102 mmol/L (101-111); CREATININE 0.7 mg/dL (0.4-1.0); GFR - MDRD 85 (>89); GLUCOSE 94 mg/dL (70-100); POTASSIUM 3.8 mmol/L (3.5-5.0); SODIUM 138 mmol/L (135-145)
== END 2017-06-24 12:32 | disposition home or self-care (01) ==
LOC: LAB.WCP 12:31
PROVIDERS: ATTEND Physician Assistant Medical
DX: G03.9 Meningitis, unspecified (principal)
CPT/HCPCS: 36415; 80053; 85025; 85651

== ENCOUNTER 2017-07-28 13:48 | Outpatient (CLI) | payer BC ==
--- NOTE | 2017-07-28 22:10 | MRI Report ---
EXAM: MRI CERVICAL SPINE WITHOUT CONTRAST EXAM DATE: 07/28/2017 02:23 PM. CLINICAL HISTORY: Neck pain. Decreased range of motion when turning to the left and up. COMPARISONS: None. TECHNIQUE: Multiplanar, multisequence T1-weighted and fluid-sensitive sequences of the cervical spine without contrast. Other: None. FINDINGS: Neurologic Structures: The visualized posterior fossa structures are unremarkable. No signal abnormal ity in the visualized spinal cord. Alignment: Focal 12 degrees kyphosis at C5-C6. 3 mm retrolisthesis of C5 on C6. Mild 50% anterior hei ght loss of C5, without marrow edema to suggest acute fracture. Minimal 2 mm anterolisthesis of C3 on C4. Bone Marrow: No gross fractures or bone lesions. No marrow edema. Interspace Levels/Facets: C1-C2: Unremarkable. C2-C3: Mild left facet arthropathy. No significant canal or foraminal narrowing. C3-C4: Anterolisthesis. Left greater than right facet arthropathy. Mild left foraminal narrowing. No significant right foraminal narrowing. C4-C5: Disk desiccation. Posterior bulging. Mild bilateral facet arthropathy. No significant canal or foraminal narrowing. C5-C6: Retrolisthesis. Posterior disk osteophyte complex eccentric to the left lateral recess. Left g reater than right uncovertebral hypertrophy. Moderate to severe left foraminal narrowing. Mild right foraminal narrowing. Posterior disk osteophyte complex indents the left paracentral ventral cord cont our without cord signal abnormality. Moderate to severe canal narrowing. C6-C7: Disk desiccation. Posterior disk bulge partially effacing the ventral CSF space. Mild to moder ate canal narrowing. Left greater than right uncovertebral hypertrophy. Mild left foraminal narrowing . C7-T1: Mild bilateral facet arthropathy without significant canal or foraminal narrowing. Musculature: Normal. No edema or fatty atrophy. Other: The paravertebral and prevertebral soft tissues are normal. IMPRESSION: 1. Chronic appearing anterior compression deformity of C5 with loss of 50% height loss, focal kyphosi s at C5-C6. 2. At C5-C6, severe disk height loss, left eccentric disk osteophyte complex and uncovertebral hypert rophy results in moderate to severe canal narrowing and moderate to severe left foraminal narrowing. 3. Minimal anterolisthesis at C3-C4, 3 mm retrolisthesis of C5 on C6. 4. At C6-C7, posterior disk osteophyte complex with [id number] canal narrowing. [facility] Referring Provider Line: [phone] SITE ID: [id number]
== END 2017-07-28 13:49 | disposition home or self-care (01) ==
LOC: DI 13:48
PROVIDERS: ATTEND Physician Assistant Medical
DX: M54.2 Cervicalgia (principal); M25.78 Osteophyte, vertebrae; M40.202 Unspecified kyphosis, cervical region
CPT/HCPCS: 72141

== ENCOUNTER 2017-11-04 08:23 | Outpatient (CLI) | payer BC ==
[2017-11-04 13:10] LABS: BASOPHILS # (AUTO) 0.2 10^3/uL (0.0-0.1); BASOPHILS % (AUTO) 2.3 %; EOSINOPHILS # (AUTO) 0.4 10^3/uL (0.0-0.7); EOSINOPHILS % (AUTO) 4.8 %; HGB - HEMOGLOBIN 13.8 g/dL (12.0-16.0); LYMPHOCYTES # (AUTO) 2.4 10^3/uL (1.5-3.5); LYMPHOCYTES % (AUTO) 29.1 %; MEAN CORPUSCULAR HEMOGLOBIN 28.5 pg (27.0-31.0); MEAN CORPUSCULAR HGB CONC 32.7 g/dL (32.0-36.0); MEAN CORPUSCULAR VOLUME 87.2 fL (81.0-99.0); MEAN PLATELET VOLUME 7.4 fL (7.9-10.8); MONOCYTES # (AUTO) 0.7 10^3/uL (0.0-1.0); MONOCYTES % (AUTO) 8.7 %; NEUTROPHILS # (AUTO) 4.5 10^3/uL (1.5-6.6); NEUTROPHILS % (AUTO) 55.1 %; PLT - PLATELET COUNT 347 10^3/uL (130-450); RED BLOOD COUNT 4.84 10^6/uL (4.20-5.40); RED CELL DISTRIBUTION WIDTH 15.6 % (12.0-15.0); WHITE BLOOD COUNT 8.2 x10^3/uL (4.8-10.8)
[2017-11-04 13:29] LABS: ALBUMIN 4.2 g/dL (3.2-5.5); ALBUMIN/GLOBULIN RATIO 1.4 (1.0-2.2); ALKALINE PHOSPHATASE 75 IU/L (42-121); ALT ALANINE AMINOTRANSFERASE 27 IU/L (10-60); AST ASPARTATE AMINOTRANSFERASE 21 IU/L (10-42); BILIRUBIN,TOTAL 0.5 mg/dL (0.2-1.0); BUN - BLOOD UREA NITROGEN 16 mg/dL (6-20); CALCIUM 9.1 mg/dL (8.5-10.3); CARBON DIOXIDE - CO2 29 mmol/L (21-32); CHLORIDE 102 mmol/L (101-111); CHOL/HDL RATIO 4.4 (<4.4); CHOLESTEROL 275 mg/dL; CREATININE 0.8 mg/dL (0.4-1.0); GFR - MDRD 72 (>89); GLUCOSE 96 mg/dL (70-100); HDL CHOLESTEROL 62 mg/dL; LDL CHOLESTEROL,CALCULATED 180 mg/dL; LDL/HDL RATIO 2.9 (<4.4); SODIUM 138 mmol/L (135-145); TOTAL PROTEIN 7.3 g/dL (6.7-8.2); VLDL CHOLESTEROL 33 mg/dL
== END 2017-11-04 08:24 | disposition home or self-care (01) ==
LOC: LAB.WCP 08:23
PROVIDERS: ATTEND Physician Assistant Medical
DX: Z00.00 Encounter for general adult medical examination without abnormal findings (principal)
CPT/HCPCS: 36415; 80053; 80061; 83721; 84443; 85025

== ENCOUNTER 2018-02-02 08:00 | Outpatient (CLI) | payer BC ==
[2018-02-02 14:13] LABS: ALBUMIN 4.2 g/dL (3.2-5.5); ALBUMIN/GLOBULIN RATIO 1.2 (1.0-2.2); ALKALINE PHOSPHATASE 76 IU/L (42-121); ALT ALANINE AMINOTRANSFERASE 27 IU/L (10-60); AST ASPARTATE AMINOTRANSFERASE 23 IU/L (10-42); BILIRUBIN,TOTAL 0.8 mg/dL (0.2-1.0); BUN - BLOOD UREA NITROGEN 16 mg/dL (6-20); CALCIUM 9.2 mg/dL (8.5-10.3); CARBON DIOXIDE - CO2 29 mmol/L (21-32); CHLORIDE 100 mmol/L (101-111); CHOL/HDL RATIO 5.1 (<4.4); CHOLESTEROL 291 mg/dL; CREATININE 0.7 mg/dL (0.4-1.0); GFR - MDRD 85 (>89); GLUCOSE 100 mg/dL (70-100); HDL CHOLESTEROL 57 mg/dL; LDL CHOLESTEROL,CALCULATED 189 mg/dL; LDL/HDL RATIO 3.3 (<4.4); SODIUM 138 mmol/L (135-145); TOTAL PROTEIN 7.7 g/dL (6.7-8.2); VLDL CHOLESTEROL 45 mg/dL
== END 2018-02-02 08:01 ==
LOC: LAB.WCP 08:00
PROVIDERS: ATTEND Physician Assistant Medical
DX: E78.5 Hyperlipidemia, unspecified (principal)
CPT/HCPCS: 36415; 80053; 80061; 83721

== ENCOUNTER 2018-04-13 08:00 | Outpatient (CLI) | payer BC ==
[2018-04-13 13:25] LABS: CHOL/HDL RATIO 2.8 (<4.4); CHOLESTEROL 185 mg/dL; HDL CHOLESTEROL 66 mg/dL; LDL CHOLESTEROL,CALCULATED 106 mg/dL; LDL/HDL RATIO 1.6 (<4.4); VLDL CHOLESTEROL 13 mg/dL
== END 2018-04-13 08:01 ==
LOC: LAB.WCP 08:00
PROVIDERS: ATTEND Physician Assistant Medical
DX: E78.5 Hyperlipidemia, unspecified (principal)
CPT/HCPCS: 36415; 80061; 83721